=== PATIENT | female | born 1955 | race Caucasian/White ===

== ENCOUNTER 2017-12-26 09:54 | Outpatient (CLI) | payer BC ==
--- NOTE | 2017-12-26 12:18 | BD ---
BONE DENSITOMETRY USING DEXA: HISTORY: Postmenopausal screening for osteoporosis. LUMBAR SPINE BMD (g/cm2) T-SCORE Z-SCORE L1 0.673 -2.9 -1.5 L2 0.681 -3.2 -1.6 L3 0.712 -3.4 -1.7 L4 0.683 -3.4 -1.7 TOTAL 0.688 -3.3 -1.7 NECK 0.600 -2.2 -0.8 TOTAL 0.786 -1.3 -0.2 There has been interval improvement of 3.2% in the BMD at the proximal femur since 09/28/2008. IMPRESSION: Osteoporosis. POS: [id number]
== END 2017-12-26 09:55 | disposition home or self-care (01) ==
LOC: BICMAMMO 09:54
PROVIDERS: ATTEND Obstetrics & Gynecology
DX: Z12.31 Encounter for screening mammogram for malignant neoplasm of breast (principal); Z13.820 Encounter for screening for osteoporosis; M81.0 Age-related osteoporosis without current pathological fracture; Z80.3 Family history of malignant neoplasm of breast; Z98.82 Breast implant status
CPT/HCPCS: 77063; 77067; 77080